=== PATIENT | male | born 1955 | race Caucasian/White ===

== ENCOUNTER 2025-04-02 10:30 | Observation (INO) | payer MEDICARE, OTHER, SELFPAY ==
--- NOTE | 2025-04-02 13:27 | PM.HP.IH.1 ---
History of Present Illness History of Present Illness Date Patient Seen: 04/02/25 Chief complaint: CHOLECYSTITIS Narrative: The patient is a 70-year-old gentleman, with a history of parkinsonism and dementia, presents with cholelithiasis. Proximally 2-3 nights ago with the patient stated he did not feel well and went to bed. Approximately 2 nights ago he felt nauseous got up in the middle of the night and vomited. Patient stated at the emesis was then describable and I could not get him to confirm her denies to whether there is any blood in it or not. He got up another time in the middle of the night and fell. According to his , he is not eaten or drank anything for the past 48 hours. She decided to get him up and take him downstairs so she could feed him. While walking down stairs his legs got very weak and he slid down the last several stairs and landed on the floor. His was then able to get him up and she therefore called EMS who took him to his local hospital. Patient had 1 transient episode of epigastric pain which has resolved and he has had no further instances. The patient presented to [facility]. His workup [place] a [place] [id number] and a lactate 2.8. The patient received 1 L of fluid and a subsequent lactate returned to normal. As part of the workup he had a cardiac workup which was essentially negative. He had a CT scan of the abdomen which showed a stone within the gallbladder and a questionable thickening of his gallbladder with no pericholecystic fluid. A subsequent ultrasound confirmed the presence of the stone with questionable mild gallbladder wall thickening. He had a transient elevation of his bili to I 0.2 and a subsequent MRCP revealed no ductal dilation and no choledocholithiasis. Upon presentation, the patient denies any nausea or abdominal pain. [facility] Social History marital status: Review of Systems Review of Systems Narrative: Difficult to obtain due to patient's dementia. Exam Narrative Exam Narrative: The patient is alert but mildly confused. HEENT is essentially unremarkable except for some hyperkeratotic lesions on his face Neck is supple and nontender Cardiac reveals a regular rate and rhythm Abdomen is somewhat distended, soft, nontender, with active bowel sounds Extremities reveal resting tremors of his hands. Assessment & Plan Assessment and plan (1) Cholelithiasis: Status: Acute (2) Parkinson's disease: Status: Acute (3) Dementia: Status: Acute Plan Clinically, the patient does not appear to have acute cholecystitis despite CT and ultrasound findings. I have asked the hospitalist see the patient in consultation to look for other sources of his white count and to treat his other chronic conditions. At present, I do not believe the patient is a surgical candidate. Time-Based Coding :: [TOTAL MINUTES] spent with patient and on the chart (including review of chart, obtaining history, exam, reviewing outside data, placing orders, documenting exam and treatment plan, and counseling patient) on [DATE]. PROFEE Rotary Planer Set Up Operator Document charge(s): Yes Charge Codes Initial inpatient/observation care: [id number]
--- NOTE | 2025-04-02 13:38 | P.CONS_ITS ---
History of Present Illness Consult details Date Patient Seen: 04/02/25 Time Patient Seen: 13:39 Chief complaint: CHOLECYSTITIS Requesting provider: Arpan Foster Narrative: I was asked by Dr. Jennings to see this pleasant 70-year-old male with history of Parkinson's disease. He was ill at home feeling under the weather and essentially down in bed for 2 days. His got him up to try to encourage him to drink some water. He then had either a fall or slide down some stairs and was eventually brought to [facility] Emergency Department. He did have vomiting several days ago, no hematemesis, blood per rectum, or melena. He denies any instances of abdomen pain. There a chest abdomen and pelvis CT indicated the possibility of cholecystitis with a relatively normal common bile duct. LFTs are normal except for 1 transient bilirubin of 1.2. He did arrive volume depleted and had a mild lactic acidosis which corrected with fluids. He was given empiric antibiotics. He denies urinary symptoms, he was not taking his usual medications for Parkinson's for the last 2-3 days in his having progressive stiffening. He does have a history of BPH and a TURP in the past. No acute urinary symptoms are reported. RUQ US revealed cholelithiasis, MRCP was negative for common bile duct or choledocholithiasis. Review of Systems Review of Systems Narrative: All else reviewed and otherwise unremarkable except as noted in the history and physical. Exam Vital Signs (past 8 hours): NAD, alert and oriented, fluent speech, calm. Chronically ill, frail, and soft- spoken. He was chronic eczema over his face. He was slow moving, and slow speaking. Normocephalic skull, EOMI, anicteric sclera, symmetric pupils. Oropharynx unremarkable, no droop. Neck supple, midline trachea, no adenopathy. Lungs clear, normal rate and effort. Heart regular, no murmur gallop or rub. Abdomen is soft, non distended and non tender. Extremities are free of edema. Skin is free of rash or lesions. Joints are not swollen or deformed. Judgment appears to be normal. [facility] Social History marital status: Tobacco & Substance Use Smoking Status: Smoker, status unknown Assessment & Plan Assessment & Plan narrative: 1. Volume depletion, present on admission and improving. 2. Recently ill with vomiting and weakness, unclear cause. Imaging indicated cholecystitis as a possibility, clinically this appears to be unlikely. He may have had a viral syndrome, urinalysis was not obtained. 3. Lactic acidosis, improved with volume resuscitation. 4. Parkinson's disease with medication noncompliance for the last 2-3 days due to illness, active. 5. Possible mild septic encephalopathy, present on admission and active. Plan: -blood cultures, urinalysis, and empiric antibiotics. -IV fluids, monitor mental status and response to therapy. -resume chronic medications including Sinemet for Parkinson's disease. -recommended no surgical intervention based on current information. -lungs were clear based on CT scan. -discussed directly with Dr. Foster, general surgeon. Met with inpatient, clarified a full resuscitation status. is proxy decision maker. Time-Based Coding :: [TOTAL MINUTES] spent with patient and on the chart (including review of chart, obtaining history, exam, reviewing outside data, placing orders, documenting exam and treatment plan, and counseling patient) on [DATE].
[2025-04-02 13:40] VITALS: BP 148/89; PULSE 83; RESP 18; TEMP 36.8; O2SAT 97
[2025-04-02 14:01] LABS: Hematocrit 40.6 % (41-53); Hemoglobin 14.0 g/dL (13.5-17.5); Mean Corpuscular HGB Conc 34.4 % (30-36); Mean Corpuscular Hemoglobin 31.2 PG (26-34); Mean Corpuscular Volume 90.8 fL (80-100); Platelet Count 232 X10^3/uL (150-400)
[2025-04-02 14:12] LABS: Alanine Aminotransferase 6 IU/L (<50); Albumin 3.7 g/dL (3.5-5.0); Albumin Globulin Ratio 1.1 (1.0-2.8); Alkaline Phosphatase 82 U/L (38-126); Blood Urea Nitrogen 16 mg/dL (9-20); Calcium 8.7 mg/dL (8.4-10.2); Carbon Dioxide 19 mmol/L (22-32); Chloride 109 mmol/L (98-107); Estimated Glomerular Filt Rate > 60 mL/min (>60); Globulin 3.4 g/dL (1.7-4.1); Glucose 71 mg/dL (70-99); HEMOLYSIS < 15 (0-50); Lipase 17 U/L (23-300); Potassium 3.9 mmol/L (3.4-5.1); Sodium 138 mmol/L (137-145); Total Protein 7.1 g/dL (6.3-8.2)
[2025-04-02 14:15] VITALS: BMI 12.0
[2025-04-02] MEDS: SODIUM CHLORIDE 0.9% 1,000 ML 100 ML IV (14:32)
[2025-04-02 21:00] VITALS: BP 136/75; PULSE 75; RESP 18; TEMP 36.7; O2SAT 95
[2025-04-02] MEDS: HEPARIN 5,000 UNIT/ML VIAL 5000 UNIT SUBCUT (21:33)
[2025-04-02] MEDS: CARBIDOPA-LEVODOPA 25/100 TABLET 1 EACH PO (21:33)
[2025-04-02] MEDS: MIRTAZAPINE 15 MG TABLET PO (21:33)
[2025-04-02] MEDS: DOCUSATE 100 MG CAPSULE PO (21:33)
[2025-04-03] MEDS: SODIUM CHLORIDE 0.9% 1,000 ML 100 ML IV ×3 (00:33→22:01)
[2025-04-03 00:59] LABS: Appearance Urine UA CLEAR; Bilirubin Urine UA 1+ (NEGATIVE); Glucose Urine UA NEGATIVE (Negative); Ketones Urine UA 2+ (NEGATIVE); Leukocyte Esterase Urine UA TRACE (NEGATIVE); Nitrite Urine UA NEGATIVE (Negative); Occult Blood Urine UA NEGATIVE (Negative); Protein Urine UA TRACE (Negative); Specific Gravity Urine UA 1.020 (1.000-1.035); Urobilinogen Urine UA 4.0 E.U./dL (0.2); pH Urine UA 5.5 (4.5-8.0)
[2025-04-03 01:05] LABS: Color Urine UA Dark Yellow
[2025-04-03 01:09] LABS: Ictotest Urine Negative (Negative)
[2025-04-03 01:11] LABS: Culture Indicated Urine Specimen Cultured
[2025-04-03 05:52] LABS: Hematocrit 39.9 % (41-53); Hemoglobin 13.0 g/dL (13.5-17.5); Mean Corpuscular HGB Conc 32.7 % (30-36); Mean Corpuscular Hemoglobin 29.5 PG (26-34); Mean Corpuscular Volume 90.0 fL (80-100); Platelet Count 226 X10^3/uL (150-400)
[2025-04-03 06:02] LABS: Alanine Aminotransferase 4 IU/L (<50); Albumin 3.3 g/dL (3.5-5.0); Albumin Globulin Ratio 1.0 (1.0-2.8); Alkaline Phosphatase 76 U/L (38-126); Blood Urea Nitrogen 14 mg/dL (9-20); Calcium 8.5 mg/dL (8.4-10.2); Carbon Dioxide 24 mmol/L (22-32); Chloride 109 mmol/L (98-107); Estimated Glomerular Filt Rate > 60 mL/min (>60); Globulin 3.3 g/dL (1.7-4.1); Glucose 70 mg/dL (70-99); HEMOLYSIS < 15 (0-50); Lipase 23 U/L (23-300); Potassium 3.7 mmol/L (3.4-5.1); Sodium 138 mmol/L (137-145); Total Protein 6.6 g/dL (6.3-8.2)
[2025-04-03 08:00] VITALS: BP 128/73; PULSE 84; RESP 17; TEMP 36.8; O2SAT 95
[2025-04-03] MEDS: CARBIDOPA-LEVODOPA 25/100 TABLET 1 EACH PO ×3 (08:33→21:11)
[2025-04-03] MEDS: HEPARIN 5,000 UNIT/ML VIAL 5000 UNIT SUBCUT ×2 (08:34→21:11)
[2025-04-03] MEDS: DOCUSATE 100 MG CAPSULE PO ×2 (08:34→21:11)
--- NOTE | 2025-04-03 10:29 | DIET.CONS ---
Dietary Consultation Note Admission Date: 04/02/2025 10:30 Assessment: 70 y M admitted for possible cholelithiasis. Dietitian screened for low MNA score and BMI. Met with pt at bedside, [facility] did not have aids in room. Pt did not appear to be 84 lb. Reports good appetite eating 3 normal meals daily, no changes in appetite. Reports weight of 180 lb-200 lb within the past year (which would put pt at BMI of 26-29) and no recent weight changes. 100% PO intakes, DFM reviewed for meal composition. Ht: 177.8 cm Wt: 38 kg BMI: 12.0 UBW: 81.8-90.9 kg per pt Last BM: 04/03/25 (04/03/25 10:13) MNA: 10 Sarmad Score: 19 Diet: 04/02/25 Dinner General (Regular) Diet Diet Modifications: Food Texture: Level 7 - Regular Liquid Consistency: Level 0 - Thin Nutrition Percent Meal Consumed 100% 04/03/25 09:21 Percent Meal Consumed 100% 04/02/25 18:00 Labs: RBC 4.43 X10^6/uL (4.5-5.9) L 04/03/25 04:40 Hgb 13.0 g/dL (13.5-17.5) L 04/03/25 04:40 Hct 39.9 % (41-53) L 04/03/25 04:40 Creatinine 1.01 mg/dL (0.66-1.25) 04/03/25 04:40 Interventions: -Informed RN. Nursing staff will obtain new bed weight as able. Monitoring/Evaluations: f/u as needed Electronically Signed by: Marietta Lares 04/03/25 10:29 Clinical Dietitian [address] [id number]
--- NOTE | 2025-04-03 11:12 | P.PN_ITS ---
Subjective Subjective Date Patient Seen: 04/03/25 Time Patient Seen: 11:12 Interval history: The patient is feeling well and anxious to go home. He denies any abdominal pain. He denies nausea and vomiting. Exam Vital Signs (past 8 hours): - 04/03/25 08:00 Temperature 98.2 F Pulse Rate 84 Respiratory Rate 17 Blood Pressure 128/73 Pulse Oximetry 95 Oxygen Flow Rate 0 Oxygen Delivery Method Room Air Oxygen Flow Rate 0 Narrative Exam Narrative: Lungs are clear to auscultation bilaterally Cardiac reveals a regular rate and rhythm Abdomen is soft, nontender, with active bowel sounds Objective Labs 04/03/25 04:40 04/03/25 04:40 Labs: Laboratory Results - last 24 hr 04/02/25 04/03/25 04/03/25 13:54 00:51 04:40 WBC 9.4 7.9 RBC 4.47 L 4.43 L Hgb 14.0 13.0 L Hct 40.6 L 39.9 L MCV 90.8 90.0 MCH 31.2 29.5 MCHC 34.4 32.7 RDW 13.8 13.5 Plt Count 232 226 Sodium 138 138 Potassium 3.9 3.7 Chloride 109 H 109 H Carbon Dioxide 19 L 24 BUN 16 14 Creatinine 1.09 1.01 Estimated GFR > 60 > 60 BUN/Creatinine Ratio 14.7 13.9 Glucose 71 70 Calcium 8.7 8.5 Total Bilirubin 1.3 0.8 AST 21 18 ALT 6 4 Alkaline Phosphatase 82 76 Total Protein 7.1 6.6 Albumin 3.7 3.3 L Globulin 3.4 3.3 Albumin/Globulin Ratio 1.1 1.0 Lipase 17 L 23 Urine Color Dark yellow Urine Appearance Clear Urine pH 5.5 Ur Specific Taylors 1.020 Urine Protein Trace H Urine Glucose (UA) Negative Urine Ketones 2+ H Urine Occult Blood Negative Urine Nitrate Negative Urine Bilirubin 1+ H Ur Bilirubin Confirm Negative Urine Urobilinogen 4.0 H Ur Leukocyte Esterase Trace H Urine RBC None seen Urine WBC 10-30/hpf H Ur Squamous Epith Cells 5-10 /hpf H Urine Bacteria Occasional (0-1) Hyaline Casts 0-1/lpf Urine Mucus 1+ H Ur Culture Indicated? Specimen cultured Vol Urine Centrifuged 10ml (spun) PFSH Social History marital status: household members: spouse Smoking Status: Former smoker alcohol intake: never Assessment & Plan Assessment and plan (1) Dementia: Status: Acute (2) Parkinson's disease: Status: Acute (3) Cholelithiasis: Status: Acute Plan Doing well clinically and has no indication at this time for surgical intervention. We will sign off and hospitalist who will take over care from here. Time-Based Coding :: [TOTAL MINUTES] spent with patient and on the chart (including review of chart, obtaining history, exam, reviewing outside data, placing orders, documenting exam and treatment plan, and counseling patient) on [DATE]. PROFEE Plant And Maintenance Technician Document charge(s): Yes
[2025-04-03] MEDS: ACETAMINOPHEN 325 MG TABLET 650 MG PO (13:14)
--- NOTE | 2025-04-03 13:50 | PT.IIE ---
Current Diagnoses Unspecified dementia, unspecified severity, without behavioral disturbance, psychotic disturbance, mood disturbance, and anxiety (04/02/25) Parkinson's disease without dyskinesia, without mention of fluctuations (04/02/25) Calculus of gallbladder without cholecystitis without obstruction (04/02/25) Physical Therapy Inpatient Evaluation/Re-Eval M1 PT/OT-IP Prior Functional Status Start: 04/02/25 16:38 Freq: NEEDED Status: Active Protocol: Document 04/03/25 13:09 MB (Rec: 04/03/25 13:50 MB Desktop) Medical Review Prior Functional Status Medical History Yes Reviewed Communication Nguyen MOLINA hearing aides Mobility and Gait 5 falls in the past year and two d/t dizziness/light- headedness Activities of Daily I without walker even though wishes he would use, Living and IADL's he had a fall on the flight of steps in the house Social History Household Members spouse Living Arrangements House Number of Floors ( Two Floors Floors) Number of Stairs To 2 steps with B rails to enter; flight of steps in the Enter/Railing? house with right rail ascend, is concerned about pt navigating these steps since he recently fell on them Home Environment Standard Height Toilet,Tub/Shower Home Equipment Front Wheel Walker,Four Wheel Walker,Shower Seat with Backrest,Hand Held Shower,Grab Bars In Shower Employment Status Retired M2 PT-IP Current Condition Start: 04/02/25 16:38 Freq: NEEDED Status: Active Protocol: Document 04/03/25 13:09 MB (Rec: 04/03/25 13:50 MB Desktop) Physical Therapy Current Condition Current Condition Evaluation Date 04/03/25 Treatment Diagnosis Fall, history of falls in setting of PD, cholelithiasis M3 PT-IP Subjective Start: 04/02/25 16:38 Freq: NEEDED Status: Active Protocol: Document 04/03/25 13:09 MB (Rec: 04/03/25 13:50 MB Desktop) Therapy Pain Assessment Pain When Pain Assessed During Mobility Pain Present Pain Present Pain Reported Location Back Intensity 9 Pain Management Distraction,Modification of Treatment,Re-positioning Techniques M4 PT-IP Mobility and Gait Start: 04/02/25 16:38 Freq: NEEDED Status: Active Protocol: Document 04/03/25 13:09 MB (Rec: 04/03/25 13:50 MB Desktop) PT-Bed Mobility Assessment Rolling Type of Rolling Roll to Left Level of Assist Contact Guard Assistance Supine to Sit Supine to Sit Moderate Assistance,1 Person Assistance,Bedrails Scooting Scooting to Edge of Contact Guard Assistance Bed PT-Transfer Assessment Sit to and From Stand Sit to and from Moderate Assistance,1 Person Assistance,Use of Upper Stand Extremities Equipment Transfer Assistive Gait Belt,Front Wheeled Walker Device Transfers Transfer Destination Chair Transfer Technique Stepping Transfer Ability Level of Assist Moderate Assistance,1 Person Assistance,Use of Upper Extremities Comments Mobility Comments PT checks orthostatics with BP in LUE supine, standing and sitting up in chair and BP does not drop, negative orthostatics this date Gait Assessment Gait Gait Assistance Moderate Assistance Required: Distance (Feet) 2 Assistive Devices Assistive Device Gait Belt,Front Wheeled Walker Gait Deviations General Gait Pattern Antalgic,Decreased Stride Length,Decreased Feet Clearance,Festinating,Flexed Trunk Factors Limiting Gait Function Factors Limiting Decreased Activity Tolerance,Incoordination,Limited Gait Function Range of Motion,Pain,Poor Balance,Poor Safety Awareness Comments Gait Comments Shuffling, festinating steps Transitional movements are slow, B UE tremors today PT-Balance Assessment Sitting Balance and Reactions Static Sitting Good Balance Ability Dynamic Sitting Fair Balance Ability Standing Balance and Reactions Static Standing Fair Balance Ability Dynamic Standing Poor Balance Ability Device Used RW M5 PT-IP Objective Assessments Start: 04/02/25 16:38 Freq: NEEDED Status: Active Protocol: Document 04/03/25 13:09 MB (Rec: 04/03/25 13:50 MB Desktop) Orientation Orientation/Cognition Level of Alertness Alert Orientation Name,Age,Birthday,Month,Year,Place Language Function Hard of Hearing Ability Safety Awareness Decreased Safety Awareness Comments provides most of history Gross Range of Motion Upper Extremity ROM Impairments Defer to OT Lower Extremity ROM Impairments Slow and rigid movement today and formal ROM and MMT not tolerated Strength Comments Strength Comments Slow and rigid movement today and formal ROM and MMT not tolerated Coordination Assessment Gross Coordination Gross Coordination Impaired Sensation Assessment Comments Sensation Comments NT Muscle Tone Muscle Tone WNL Yes M7 PT-IP Assessment and Plan Start: 04/02/25 16:38 Freq: NEEDED Status: Active Protocol: Document 04/03/25 13:09 MB (Rec: 04/03/25 13:50 MB Desktop) PT Summary Assessment and Plan Potential Rehabilitation Fair Potential Status of Condition Evolving at Evaluation Summary Impairments Pain,ROM,Balance,Coordination,Cognition,Bed Mobility, Transfers,Gait,Activity Tolerance Assessment Summary Pt is a 70 y/o male presenting to hospital after fall on the steps and presenting with back pain. His reports 5 falls in the past year, two d/t dizziness. PT checks for orthostatic hypotension and he is not orthostatic with PT today. He presents with B UE tremors, slow transitional movements and rigidity with movements. He presents with festinating steps and forward, flexed posture at hips and knees with stepping to the chair. is concerned about him navigating the flight of steps at home. Will initiate further gait and stair training in acute setting. Recommend 24 hour assist and HHPT at d/c, progress to OPPT LSVT BIG in the future. Spoke with about recommendations, ed on LSVT BIG for PD. Goals Bed Mobility Goal Independent Transfer Goal Independent,Front Wheeled Walker,Four Wheeled Walker Gait Goal Standby Assistance,Front Wheel Walker,Four Wheel Walker Gait Distance 75 Other Goals Pt will ascend and descend 2 steps with B rail and no more than CGA to allow safe home entrance. Pt will ascend and descend flight of steps with right rail ascend and left rail descend with no more than CGA to allow safe home mobility. Days to Meet Goals 5 Frequency of Treatment Frequency Of Once a Day Treatment Treatment Plan Physical Therapy Bed Mobility Training,Transfer Training,Gait Training, Treatment Plan Therapeutic Exercise,Balance Retraining,Discharge Planning,Hot or Cold Pack,Neuromuscular Re-ed, Coordination Retraining,Manual Therapy Precautions Other Precautions Fall risk Recommendations To Nursing Amount of Assist 1 Person Assist Needed Discharge Recommendations PT Discharge Home with 03/04 Assist Available,Home Health Recommendations Transportation Needs Private Vehicle at Discharge - PT assist x1
--- NOTE | 2025-04-03 14:42 | OT.IP.EVAL ---
Current Diagnoses Unspecified dementia, unspecified severity, without behavioral disturbance, psychotic disturbance, mood disturbance, and anxiety (04/02/25) Parkinson's disease without dyskinesia, without mention of fluctuations (04/02/25) Calculus of gallbladder without cholecystitis without obstruction (04/02/25) Occupational Therapy Inpatient Evaluation/Re-Eval M1 PT/OT-IP Prior Functional Status Start: 04/02/25 16:38 Freq: NEEDED Status: Active Protocol: Document 04/03/25 14:41 [facility] (Rec: 04/03/25 14:57 [facility] Desktop) Medical Review Prior Functional Status Medical History Yes Reviewed Communication SITKA, [facility] hearing aides Mobility and Gait 5 falls in the past year and two d/t dizziness/light- headedness Activities of Daily I without walker even though wishes he would use, Living and IADL's he had a fall on the flight of steps in the house Pt states prior able to care fore himself for ADL needs . Social History Household Members spouse Living Arrangements House Number of Floors ( Two Floors Floors) Number of Stairs To 2 steps with B rails to enter; flight of steps in the Enter/Railing? house with right rail ascend, is concerned about pt navigating these steps since he recently fell on them Home Environment Standard Height Toilet,Tub/Shower Home Equipment Front Wheel Walker,Four Wheel Walker,Shower Seat with Backrest,Hand Held Shower,Grab Bars In Shower Employment Status Retired M2 OT-IP Current Condition Start: 04/03/25 14:41 Freq: Status: Active Protocol: Document 04/03/25 14:41 [facility] (Rec: 04/03/25 14:57 [facility] Desktop) Occupational Therapy Current Condition Current Condition Evaluation Date 04/03/25 Treatment Diagnosis Cholelitithiasis Diagnosis Onset Date 04/02/25 M3 OT- IP Subjective and Pain Start: 04/03/25 14:41 Freq: Status: Active Protocol: Document 04/03/25 14:41 [facility] (Rec: 04/03/25 14:57 [facility] Desktop) OT- Subjective Occupational Therapy Visit Type Type Initial Evaluation Visit Start Time 13:35 Visit Stop Time 14:42 Occupational Therapy Visit Comments Patient Comments Pt agreed to get up to try to use the BSC and have a bowel movement. Patient/Caregiver TO go home. Goals OT Pain Assessment Pain When Pain Assessed At Rest Pain Present Pain Present Denied Pain M4 OT- IP ADL's Start: 04/03/25 14:41 Freq: Status: Active Protocol: Document 04/03/25 14:41 [facility] (Rec: 04/03/25 14:57 [facility] Desktop) OT [id number] Comments OT Self-Feeding Not at meal time. Comments OT ADL-Grooming Comments OT Grooming Comments Pt refused and just able to wash his hands after encouragement. OT ADL-Oral Care Comments Oral Care Comments Pt refused. OT ADL-Dressing General Eval Lower Body Dressing Moderate Assistance Ability Comments OT Dressing Comments Assist to help thread his feet into the brief. Pt able to ajay his socks while seated. OT ADL-Toileting General Evaluation Toileting Ability Moderate Assistance Areas Needing Manage Clothing Assistance Comments OT Toileting Assist for brief management and MAX vc for completeness Comments to wipe. Notes blood in his BM and notified nursing. OT ADL-Bathing Comments OT Bathing Comments Not performed. Spoke of option of tub bench versus transfer pole to increase safety for showering needs. Pt will also benefit form his to assist as needed. M5 OT- IP IADL's Start: 04/03/25 14:41 Freq: Status: Active Protocol: Document 04/03/25 14:41 [facility] (Rec: 04/03/25 14:57 [facility] Desktop) OT-Instrumental Activities of Daily Living Home Safety Awareness Awareness of Need Decreased Awareness for Assistance at Home Medication Management Medication Caregiver Provides Supervision Management Medication Pt's sets up his medications. Management Comments Meal Preparation Meal Preparation Caregiver Provides Assist Gis Developer Gis Developer Caregiver Provides Assist M6 OT- IP Functional Cognition Start: 04/03/25 14:41 Freq: Status: Active Protocol: Document 04/03/25 14:41 [facility] (Rec: 04/03/25 14:57 [facility] Desktop) Cognitive Factors Limiting Selfcare Function Cognitive Ability Level of Alertness Alert Patient Orientation Name,Age,Birthday,Month,Year,Day of Week,Place, Situation Attention Span Capable of Focused Attention,Capable of Sustained Ability Attention Ability to Follow Able to Follow One Step Commands Commands Safety Awareness Underestimates Need for Assistance Cognitive Comments Cognitive Assessment Pt has poor safety awareness, impulsive and needing MAX Comments vc for safety for FWW use and mobility needs. Pt would benefit from direct supervision or use of chair alarm. Suggested chair alarm to pt's nurse, nurse felt that it was not needed. Pt is insistent that he is fine and does not need any assistance. OT- Vision and Hearing OT- Hearing Assessment OT- Hearing Hearing Impaired,Use of Hearing Aids Assessment OT- Vision Assessment Visual Acuity Glasses All The Time Visual Attentiveness WFL Occular Pursuits WFL M7 OT- IP Mobility and Balance Start: 04/03/25 14:41 Freq: Status: Active Protocol: Document 04/03/25 14:41 [facility] (Rec: 04/03/25 14:57 [facility] Desktop) OT-Transfer Assessment Sit to and From Stand Sit to and from Contact Guard Assistance Stand Transfers Transfer Ability Contact Guard Assistance Technique Transfer Destination Bedside Commode,Chair Transfer Technique Stand Step Pivot Devices Transfer Assistive Gait Belt,Front Wheeled Walker Devices Comments Mobility Comments CGA to stand and walk to the bathroom with the FWW. Occasional assist to guide the FWW as pt tends to reach for solid surfaces for his balance needs instead of backing up the FWW all the way before reaching back to sit down. Pt did have a loss of balance while standing to wipe and needing CGA to rebalance himself. OT- Balance Assessment Sitting Balance and Reactions Static Sitting Normal Balance Ability Dynamic Sitting Good Balance Ability Standing Balance and Reactions Static Standing Fair Balance Ability Dynamic Standing Fair Balance Ability M8 OT- IP Objective Assessments Start: 04/03/25 14:41 Freq: Status: Active Protocol: Document 04/03/25 14:41 [facility] (Rec: 04/03/25 14:57 [facility] Desktop) OT Gross Range of Motion Upper Extremity Range of Motion Assessment Within Functional Limits OT Strength Upper Extremity Strength Assessment Within Functional Limits OT-Muscle Tone Assessment Comments Muscle Tone Comments Pt has tremors in BUE and as pt is a hurry to have a BM , his whole body is tremulous. M9 OT- IP Assessment and Plan Start: 04/03/25 14:41 Freq: Status: Active Protocol: Document 04/03/25 14:41 [facility] (Rec: 04/03/25 14:57 [facility] Desktop) OT Summary Assessment and Plan Potential Rehabilitation Fair Potential Analytic Complexity Moderate at Evaluation Summary OT Impairments Balance,Functional Cognition,Functional Mobility, Dressing,Toileting,Bathing,Toilet Transfers,Shower Transfers,Activity Tolerance Progress Towards Slow Progress due to Medical Issues Goals Assessment Summary Pt MOD complexity and main barriers are steps, decreased balance and safety awareness. Pt is a high fall risk as he is impulsive and has had 5 falls in the past year. Suggested to nursing pt have a chair alarm on. Pt to go home with 24/7 assist and benefit from home health. Goals Self-Feeding Goal Independent Grooming Goal Independent Dressing Goal Independent Toileting Goal Standby Assistance Bathing Goal Standby Assistance Toilet Transfer Goal Independent Shower Transfer Goal Standby Assistance Days to Meet Goals 7 Frequency of Treatment Other frequency 5x/week Treatment Plan OT Treatment Plan ADL Training,Functional Mobility,Patient/Family Education,Discharge Planning Other Treatment Standing ADL's at the sink. Recommendations and Next Treatment Focus Discharge Recommendations OT Discharge Home with 24/7 Assist Available,Home Health Recommendations Transportation Needs Private Vehicle at Discharge
--- NOTE | 2025-04-03 14:56 | CM.DANOTE ---
Initial DCP Assessment Note Pt is a 70 yo male, resident of [place], admitted for management of volume depletion with Cholelithiasis-No surgery needed according to general surgeon. Patient with PMH of dementia and Parkinson's. PCP: Sreedhar Zhang Payer: [facility]/[employer] Reviewed chart and met with patient and spouse while OT was finishing her eval. Patient is able to complete most ADLs indp but likely with some level of assist due to slow processing and unsteady gait. Patient will not use walker according to and has fallen numerous times at home. Patient/sp moved from [facility], where they lived for 20+ years, within the last year to be closer to one of their adult children. After the move, patient started to have an increase in medical complications. Patient had [facility] at one point, spouse would like to wait on another referral to HH. Spouse hopeful she can get patient in to see a certified PT/OT with the [employer] program which is a program that trains people with Parkinson's to use their body more normally (per [employer] website). Spouse has no assistance at home to care for patient, says she may consider hiring care givers someday. Therapies are clearing patient for return home, home health is recommended. Spouse declines HH at this time. Social work team will plan to follow clinical course closely in case any DC needs or concerns arise. RUDDY Oliveira Discharge Planning/Care Management CM Discharge Assessment Start: 04/02/25 13:55 Freq: Status: Active Protocol: Document 04/03/25 14:46 [facility] (Rec: 04/03/25 14:56 [facility] [id number]) Discharge Planning Assessment Assigned Discharge RUDDY Mckeon Director Medicare Sales DPOA/Assigned Tammie Short, spouse Designee Name Contact Information [phone] Advance Directives? Yes: [place] file at [place] Advance Directives No on File History Provided By Significant Other Prior Living House Arrangements Household Members spouse Type of Relies on Others transporation used prior to admit Independent with ADL Yes 's Is patient alert and Yes: Parkinsons related dementia oriented? Needs Assistance Meal Prep,Managing Medications,Home Chores / Shopping With Comment Needs assist with higher ADLs, able to walk without the walker but unsteady, hx of falls Comment Home w/sp Barriers to No Discharge Discharge Plan Home Transportation Spouse Arrangement Referrals Initiated None needed Additional Comment Spouse would rather have patient participate in outpatient therapy at this time
--- NOTE | 2025-04-03 15:55 | PM.PN.1 ---
Subjective Subjective Date Patient Seen: 04/03/25 Interval history: Chief complaint: Nausea vomiting anorexia weakness dehydration lactic acidosis suspect secondary to enteritis with incidental finding of solitary gallstone History of present illness: 04/02: 70-year-old male with history of Parkinson's disease. He was ill at home feeling under the weather and essentially down in bed for 2 days. His got him up to try to encourage him to drink some water. He then had either a fall or slide down some stairs and was eventually brought to [facility]. He did have vomiting several days ago, no hematemesis, blood per rectum, or melena. He denies any instances of abdomen pain. There a chest abdomen and pelvis CT indicated the possibility of cholecystitis with a relatively normal common bile duct. LFTs are normal except for 1 transient bilirubin of 1.2. He did arrive volume depleted and had a mild lactic acidosis which corrected with fluids. He was given empiric antibiotics. He denies urinary symptoms, he was not taking his usual medications for Parkinson's for the last 2-3 days in his having progressive stiffening. He does have a history of BPH and a TURP in the past. No acute urinary symptoms are reported. Hospital course: 04/03: Feeling much better tolerating regular diet at this time able to resume his Parkinson's medications Review of systems: No headache diplopia blurred vision No chest pain palpitations wheezing or shortness a breath No nausea vomiting diarrhea No urinary Physical exam: Elderly gentleman no acute distress alert and cogent HEENT unremarkable except dry oropharynx Heart rate and rhythm regular Lungs Abdomen nontender Moves all extremities Assessment and plan: 1. Volume depletion, present on repleted Tolerating oral diet and hydration 2. Recently ill with vomiting and weakness, unclear cause. Imaging indicated cholecystitis as a possibility, clinically this appears to be unlikely. He may have had a viral syndrome No indication for cholecystectomy Clinical picture does not support cholecystitis Likely viral enteritis 3. Lactic acidosis, resolved with volume resuscitation. 4. Parkinson's disease with medication noncompliance for the last 2-3 days due to illness, active. Resume medication PT and OT evaluation 5. Possible mild septic encephalopathy, present on admission resolving No further diagnostic evaluation DVT prophylaxis: Subcutaneous heparin Code status: Full code Disposition: Anticipate discharge tomorrow after PT OT eval 35 minutes were involved in the evaluation of this patient directly review of notes and laboratory and imaging and discussion with surgeon Exam Vital Signs (past 8 hours): - 04/03/25 08:00 Temperature 98.2 F Pulse Rate 84 Respiratory Rate 17 Blood Pressure 128/73 Pulse Oximetry 95 Oxygen Flow Rate 0 Oxygen Delivery Method Room Air Oxygen Flow Rate 0 Objective Labs 04/03/25 04:40 04/03/25 04:40 Labs: Laboratory Results - last 24 hr 04/03/25 04/03/25 00:51 04:40 WBC 7.9 RBC 4.43 L Hgb 13.0 L Hct 39.9 L MCV 90.0 MCH 29.5 MCHC 32.7 RDW 13.5 Plt Count 226 Sodium 138 Potassium 3.7 Chloride 109 H Carbon Dioxide 24 BUN 14 Creatinine 1.01 Estimated GFR > 60 BUN/Creatinine Ratio 13.9 Glucose 70 Calcium 8.5 Total Bilirubin 0.8 AST 18 ALT 4 Alkaline Phosphatase 76 Total Protein 6.6 Albumin 3.3 L Globulin 3.3 Albumin/Globulin Ratio 1.0 Lipase 23 Urine Color Dark yellow Urine Appearance Clear Urine pH 5.5 Ur Specific [place] 1.020 Urine Protein Trace H Urine Glucose (UA) Negative Urine Ketones 2+ H Urine Occult Blood Negative Urine Nitrate Negative Urine Bilirubin 1+ H Ur Bilirubin Confirm Negative Urine Urobilinogen 4.0 H Ur Leukocyte Esterase Trace H Urine RBC None seen Urine WBC 10-30/hpf H Ur Squamous Epith Cells 5-10 /hpf H Urine Bacteria Occasional (0-1) Hyaline Casts 0-1/lpf Urine Mucus 1+ H Ur Culture Indicated? Specimen cultured Vol Urine Centrifuged 10ml (spun) PFSH Social History marital status: household members: spouse Smoking Status: Former smoker alcohol intake: never Assessment & Plan Time-Based Coding :: [TOTAL MINUTES] spent with patient and on the chart (including review of chart, obtaining history, exam, reviewing outside data, placing orders, documenting exam and treatment plan, and counseling patient) on [DATE].
[2025-04-03 20:00] VITALS: BP 151/85; PULSE 67; RESP 18; TEMP 36.8; O2SAT 96
[2025-04-03] MEDS: MIRTAZAPINE 15 MG TABLET PO (21:11)
[2025-04-04] MEDS: SODIUM CHLORIDE 0.9% 1,000 ML 100 ML IV (07:46)
[2025-04-04 08:00] VITALS: BP 146/80; PULSE 57; RESP 18; TEMP 36.8; O2SAT 98
[2025-04-04] MEDS: HEPARIN 5,000 UNIT/ML VIAL 5000 UNIT SUBCUT (08:39)
[2025-04-04] MEDS: CARBIDOPA-LEVODOPA 25/100 TABLET 1 EACH PO (08:39)
[2025-04-04] MEDS: DOCUSATE 100 MG CAPSULE PO (08:39)
--- NOTE | 2025-04-04 11:45 | PT.IPTN ---
Current Diagnoses Unspecified dementia, unspecified severity, without behavioral disturbance, psychotic disturbance, mood disturbance, and anxiety (04/02/25) Parkinson's disease without dyskinesia, without mention of fluctuations (04/02/25) Calculus of gallbladder without cholecystitis without obstruction (04/02/25) Physical Therapy Treatment Note M2 PT-IP Current Condition Start: 04/02/25 16:38 Freq: NEEDED Status: Active Protocol: Document 04/03/25 13:09 [facility] (Rec: 04/03/25 13:50 [facility] Desktop) Physical Therapy Current Condition Current Condition Evaluation Date 04/03/25 Treatment Diagnosis Fall, history of falls in setting of PD, cholelithiasis M3 PT-IP Subjective Start: 04/02/25 16:38 Freq: NEEDED Status: Active Protocol: Document 04/04/25 11:45 [facility] (Rec: 04/04/25 13:15 [facility] [id number]) Subjective Physical Therapy Visit Type Type Treatment Note Visit Start Time 11:45 Visit Stop Time 12:15 Number of DINKEY ENGINE FIRER/FIREMAN Visits 0 Physical Therapy Visit Comments Patient Comments agreeable to do PT M4 PT-IP Mobility and Gait Start: 04/02/25 16:38 Freq: NEEDED Status: Active Protocol: Document 04/04/25 11:45 [facility] (Rec: 04/04/25 13:15 [facility] [id number]) PT-Bed Mobility Assessment Supine to Sit Supine to Sit Standby Assistance,Head of Bed Elevated,Bedrails PT-Transfer Assessment Sit to and From Stand Sit to and from Contact Guard Assistance,Minimal Assistance,1 Person Stand Assistance,Use of Upper Extremities Equipment Transfer Assistive Gait Belt,Front Wheeled Walker Device Orthotic/Prosthetic No Devices or Brace: Transfers Transfer Destination Chair Transfer Technique ambulated Transfer Ability Level of Assist Contact Guard Assistance,Minimal Assistance,1 Person Assistance,Use of Upper Extremities Comments Mobility Comments pt in bed and agreeable to do PT. supine to sit SBA and cues for safety. HOB elevated. pt can be impulsive. pt needed increase time to complete task. sit to stand CGA to min A and cues. pt ambulated in room using FWW ~ 40 ft needing min A with initial steps with increase posterior trunk lean and cued to use FWW for support. needing only CGA after a 10 ft of ambulation and after cued provided. pt sat on chair and rested. pt completed up/down step stool using side of FWW for support requiring min A to complete. pt sat back on chair and positioned. call light and table placed within reach. setup for lunch. chair alarm on. Gait Assessment Gait Gait Assistance Contact Guard Assist,Minimum Assistance,1 Person Assist Required: Distance (Feet) 40 Able to Maintain Yes Weight Bearing Status During Gait Assistive Devices Assistive Device Gait Belt,Front Wheeled Walker Orthotic/Prosthetic No Devices or Brace: Gait Deviations General Gait Pattern Ataxic,Decreased Stride Length,Decreased Feet Clearance ,Step-to Gait Factors Limiting Gait Function Factors Limiting Decreased Activity Tolerance,Decreased Strength, Gait Function Difficulty Following Directions,Limited Range of Motion ,Poor Balance,Poor Safety Awareness Stair Climbing Assessment Evaluation Level of Assist On Minimal Assistance,1 Person Assistance Stairs Devices Stair Climbing Left Railing,Right Railing Assistive Devices Technique/Endurance Stair Climbing Ascend and Descend Direction Stair Climbing Step to Step Technique Number of Steps 1 Climbed Stair Climbing Set # 2 Repetitions (reps) M5 PT-IP Objective Assessments Start: 04/02/25 16:38 Freq: NEEDED Status: Active Protocol: Document 04/03/25 13:09 [facility] (Rec: 04/03/25 13:50 [facility] Desktop) Orientation Orientation/Cognition Level of Alertness Alert Orientation Name,Age,Birthday,Month,Year,Place Language Function Hard of Hearing Ability Safety Awareness Decreased Safety Awareness Comments provides most of history Gross Range of Motion Upper Extremity ROM Impairments Defer to OT Lower Extremity ROM Impairments Slow and rigid movement today and formal ROM and MMT not tolerated Strength Comments Strength Comments Slow and rigid movement today and formal ROM and MMT not tolerated Coordination Assessment Gross Coordination Gross Coordination Impaired Sensation Assessment Comments Sensation Comments NT Muscle Tone Muscle Tone WNL Yes M6 PT-IP Treatment Start: 04/02/25 16:38 Freq: NEEDED Status: Active Protocol: Document 04/04/25 11:45 [facility] (Rec: 04/04/25 13:15 [facility] [id number]) Physical Therapy Treatment Education Education Provided Safety M7 PT-IP Assessment and Plan Start: 04/02/25 16:38 Freq: NEEDED Status: Active Protocol: Document 04/04/25 11:45 [facility] (Rec: 04/04/25 13:15 AB [id number]) PT Summary Assessment and Plan Potential Rehabilitation Fair Potential Summary Impairments Pain,ROM,Strength,Balance,Coordination,Sensation,Tone, Cognition,Bed Mobility,Transfers,Gait,Activity Tolerance Progress Towards Slow Progress due to Medical Issues,Slow Progress due Goals to Activity Tolerance Assessment Summary pt requiring CGA to min A with mobility using FWW and need assistance at home. pt lives with spouse. pt will benefit from HHPT vs outpt PT. Goals Bed Mobility Goal Independent Transfer Goal Independent,Front Wheeled Walker,Four Wheeled Walker Gait Goal Standby Assistance,Front Wheel Walker,Four Wheel Walker Gait Distance 75 Other Goals Pt will ascend and descend 2 steps with B rail and no more than CGA to allow safe home entrance. Pt will ascend and descend flight of steps with right rail ascend and left rail descend with no more than CGA to allow safe home mobility. Days to Meet Goals 5 Frequency of Treatment Frequency Of Once a Day Treatment Treatment Plan Physical Therapy Bed Mobility Training,Transfer Training,Gait Training, Treatment Plan Therapeutic Exercise,Balance Retraining,Discharge Planning,Hot or Cold Pack,Neuromuscular Re-ed, Coordination Retraining,Manual Therapy Precautions Other Precautions Fall risk Recommendations To Nursing Amount of Assist 1 Person Assist Needed Discharge Recommendations PT Discharge Home with Assistance,Home with 03/04 Assist Available, Recommendations Outpatient PT Transportation Needs Private Vehicle at Discharge - PT assist 1
--- NOTE | 2025-04-04 12:01 | P.DS_ITS ---
History of Present Illness History of Present Illness Date Patient Seen: 04/04/25 Chief complaint: Diarrhea enteritis Narrative: Chief complaint: Nausea vomiting anorexia weakness dehydration lactic acidosis suspect secondary to enteritis with incidental finding of solitary gallstone History of present illness: 04/02:70-year-old male with history of Parkinson's disease. He was ill at home feeling under the weather and essentially down in bed for 2 days. His got him up to try to encourage him to drink some water. He then had either a fall or slide down some stairs and was eventually brought to [facility] Emergency Department. He did have vomiting several days ago, no hematemesis, blood per rectum, or melena. He denies any instances of abdomen pain. There a chest abdomen and pelvis CT indicated the possibility of cholecystitis with a relatively normal common bile duct. LFTs are normal except for 1 transient bilirubin of 1.2. He did arrive volume depleted and had a mild lactic acidosis which corrected with fluids. He was given empiric antibiotics. He denies urinary symptoms, he was not taking his usual medications for Parkinson's for the last 2-3 days in his having progressive stiffening. He does have a history of BPH and a TURP in the past. No acute urinary symptoms are reported. Hospital course: 04/03:Feeling much better tolerating regular diet at this time able to resume his Parkinson's medications 04/04: Feeling back to baseline contact guard with physical therapy Review of systems: No headache diplopia blurred vision No chest pain palpitations wheezing or shortness a breath No nausea vomiting diarrhea No urinary Physical exam: Elderly gentleman no acute distress alert and cogent HEENT unremarkable except dry oropharynx Heart rate and rhythm regular Lungs Abdomen nontender Moves all extremities Assessment and plan: 1. Volume depletion, present on repleted * Tolerating oral diet and hydration 2. Recently ill with vomiting and weakness, unclear cause. Imaging indicated cholecystitis as a possibility, clinically this appears to be unlikely. He may have had a viral syndrome resolved * No indication for cholecystectomy * Clinical picture does not support cholecystitis * Likely viral enteritis 3. Lactic acidosis, resolved with volume resuscitation. 4. Parkinson's disease with medication noncompliance for the last 2-3 days due to illness, active. * Resume medication * PT and OT evaluation contact guard 5. Possible mild septic encephalopathy, present on admission resolved * No further diagnostic evaluation Disposition: * Discharge to home 35 minutes were involved in the evaluation of this patient directly review of notes and laboratory and imaging and discussion with surgeon Discharge Providers Provider Date of admission: 04/02/25 10:30 Discharge Date: 04/04/25 Primary care physician: Sreedhar Patrick Rai, DO Consults: 04/02/25 13:51 Consult to Physical Therapy Evaluate & Treat Comment: Physician Instructions: Evaluate and Treat 04/03/25 10:40 Consult to Occupational Therapy Evaluate & Treat Comment: Physician Instructions: Evaluate and treat Discharge provider: Kevin Mcgowan MD Exam Vital Signs (past 8 hours): - 04/04/25 08:00 Temperature 98.2 F Pulse Rate 57 L Respiratory Rate 18 Blood Pressure 146/80 H Pulse Oximetry 98 Oxygen Flow Rate 0 Oxygen Delivery Method Room Air Oxygen Flow Rate 0 Objective Labs 04/03/25 04:40 04/03/25 04:40 PFSH Social History marital status: household members: spouse Smoking Status: Former smoker alcohol intake: never Discharge Plan Discharge Plan Patient Disposition: Home Discharge orders & Medications Prescriptions: Continued carbidopa-levodopa 25-100 mg tablet 1 tab PO 3XD Patient Comments: Patient does not adhere to a set schedule of med times at home, has to remind him to take mirtazapine 30 mg tablet 15 mg PO BEDTIME Follow up/Referrals: Sreedhar Zhang DO [Primary Care Provider, Family Practice] Visit Report/Discharge Packet Stand Alone Forms: Patient Portal/API, Stroke Signs & Symptoms Discharge Data Primary Care Provider: Sreedhar Zhang Attending Provider: Eduardo Pascal Admit Date/Time: 04/02/25 10:30
--- NOTE | 2025-04-04 14:07 | PC.NURSE ---
DISCUSSED DISCHARGE PACKET WITH PATIENT/ . SIGNATURE PAGE SIGNED AND PLACED IN CHART. IV'S D/C;D/
--- NOTE | 2025-04-04 14:09 | PC.NURSE ---
DISCHARGE PACKET DISCUSSED WITH PATIENT/ . SIGNATURE PAGE SIGNED AND PLACED IN CHART. IV'S D/C'D.
== END 2025-04-04 14:25 | disposition home or self-care (01) ==
PROVIDERS: Admitting Provider Hospitalist; PCP Family Medicine; Referring Provider Surgery Trauma Surgery; Visit Provider Hospitalist
DX: E87.20 Acidosis, unspecified (principal); G93.41 Metabolic encephalopathy; E86.0 Dehydration; R19.7 Diarrhea, unspecified; K80.20 Calculus of gallbladder without cholecystitis without obstruction; G20.A1 Parkinson's disease without dyskinesia, without mention of fluctuations; F03.90 Unspecified dementia, unspecified severity, without behavioral disturbance, psychotic disturbance, mood disturbance, and anxiety; W19.XXXA Unspecified fall, initial encounter; Y92.009 Unspecified place in unspecified non-institutional (private) residence as the place of occurrence of the external cause; Z91.148 Patient's other noncompliance with medication regimen for other reason
CPT/HCPCS: 36415; 80053; 81001; 83690; 85027; 87086; 97116; 97161; 97166; 97530; 97535; 99222; 99231; G0378; G0379; J1644